=== PATIENT | female | born 1950 | race Caucasian/White ===

== ENCOUNTER → 2017-01-12 | Outpatient (CLI) | payer MEDICARE ==
--- NOTE | 2017-01-14 10:15 | REPMRS ---
Patient History The patient states she has not had a clinical breast exam in over a year. Patient is postmenopausal. No known family history of cancer. Took estrogen for 5 years. Digital Woman Screen Mammo: January 12, 2017 - Exam #: [id number] Bilateral CC and MLO view(s) were taken. Technologist: Julisa Damon, Technologist Prior study comparison: January 08, 2016, digital woman screen mammo performed at [facility]. January 03, 2015, digital woman screen mammo performed at [facility]. January 02, 2014, digital woman screen mammo performed at [facility]. FINDINGS: There are scattered fibroglandular densities. There has been no change in the appearance of the mammogram from the prior studies. There is a mild amount of scattered fibroglandular density which is fairly symmetric. There is no interval development of dominant mass, architectural distortion, or clustered microcalcification suggestive of malignancy. ASSESSMENT: BI-RADS/ACR category 1 mammogram. Negative. Recommendation Routine screening mammogram in 1 year (for women over age 40). This mammogram was interpreted with the aid of an FDA-approved computer-aided dectection system. Electronically Signed By: Kalpesh Hickey MD 01/14/17 [id number]
== END ==
LOC: M WHC 10:25
PROVIDERS: ATTEND Family Medicine
DX: Z12.31 Encounter for screening mammogram for malignant neoplasm of breast (principal)

== ENCOUNTER → 2017-04-03 | Outpatient (REF) | payer MEDICARE ==
[2017-04-03 12:50] LABS: MEAN CORPUSCULAR HEMOGLOBIN 30.8 pg (27.0-33.0); MEAN CORPUSCULAR HGB CONC 33.2 g/dl (32.0-36.5); MEAN CORPUSCULAR VOLUME 92.6 fl (80.0-96.0); RED CELL DISTRIBUTION WIDTH 12.8 % (11.5-14.5); WHITE BLOOD COUNT 7.8 K/mm3 (4.0-10.0)
[2017-04-03 13:38] LABS: ALBUMIN 3.4 GM/DL (3.2-5.2); ALBUMIN/GLOBULIN RATIO 1.1 (1.00-1.93); BILIRUBIN,TOTAL 0.4 MG/DL (0.2-1.0); CALCIUM LEVEL 9.4 MG/DL (8.8-10.2); CREATININE FOR GFR 1.13 MG/DL (0.55-1.02); GLOMERULAR FILTRATION RATE 51.3 (>45); POTASSIUM SERUM 4.7 MEQ/L (3.5-5.1); TOTAL PROTEIN 6.5 GM/DL (6.4-8.2)
== END ==
LOC: M LABDRWAD 12:10
PROVIDERS: ATTEND Family Medicine
DX: E11.9 Type 2 diabetes mellitus without complications (principal)

== ENCOUNTER → 2018-01-14 | Outpatient (CLI) | payer MEDICARE | LOC: M WHC 07:56 | DX: Z12.31 Encounter for screening mammogram for malignant neoplasm of breast (principal) | CPT/HCPCS: 77067 ==

== ENCOUNTER 2018-02-26 16:07 | Emergency (ER) | payer OTHER, MEDICARE ==
[2018-02-26] MEDS: NORCO, ANEXSIA 5/325MG TABLET (HYDROcodone/ACETAMINOPHEN) PO (18:24)
[2018-02-26] MEDS: NORCO 5/325MG TABLET (BULK FOR ED) PO (20:50)
== END 2018-02-26 20:56 | disposition home or self-care (01) ==
LOC: M ED 16:07
DX: S42.291A Other displaced fracture of upper end of right humerus, initial encounter for closed fracture (principal); M19.011 Primary osteoarthritis, right shoulder; V43.62XA Car passenger injured in collision with other type car in traffic accident, initial encounter; Y92.410 Unspecified street and highway as the place of occurrence of the external cause; E11.9 Type 2 diabetes mellitus without complications; I10 Essential (primary) hypertension; M75.81 Other shoulder lesions, right shoulder; Z79.899 Other long term (current) drug therapy; Z79.82 Long term (current) use of aspirin; Z79.84 Long term (current) use of oral hypoglycemic drugs
CPT/HCPCS: 73030

== ENCOUNTER → 2018-04-09 | Outpatient (CLI) | payer MEDICARE, OTHER ==
[2018-04-09 12:38] LABS: BASO # 0.1 10^3/uL (0.0-0.2); BASO % 0.8 % (0.0-1.0); EOS # 0.8 10^3/uL (0.0-0.50); EOS % 10.3 % (0.0-3.0); HEMATOCRIT 32.5 % (36.0-47.0); HEMOGLOBIN 10.3 g/dl (12.0-15.5); IMMATURE GRANULOCYTE % 0.5 % (0-3.0); LYMPH # 1.5 10^3/uL (1.5-4.5); LYMPH % 20.1 % (24.0-44.0); MEAN CORPUSCULAR HEMOGLOBIN 30.2 pg (27.0-33.0); MEAN CORPUSCULAR HGB CONC 31.7 g/dl (32.0-36.5); MEAN CORPUSCULAR VOLUME 95.3 fl (80.0-96.0); MONO # 0.5 10^3/uL (0.0-0.8); MONO % 6.4 % (0.0-5.0); NEUTROPHILS # 4.7 10^3/uL (1.8-7.7); NEUTROPHILS % 61.9 % (36.0-66.0); PLATELET COUNT, AUTOMATED 334 10^3/uL (150-450); RED BLOOD COUNT 3.41 10^6/uL (4.00-5.40); RED CELL DISTRIBUTION WIDTH 13.7 % (11.5-14.5); WHITE BLOOD COUNT 7.7 10^3/uL (4.0-10.0)
[2018-04-09 13:54] LABS: ALBUMIN 3.2 GM/DL (3.2-5.2); ALBUMIN/GLOBULIN RATIO 1.14 (1.00-1.93); ALKALINE PHOSPHATASE 128 U/L (45-117); ALT/SGPT 16 U/L (12-78); ANION GAP 10 MEQ/L (8-16); AST/SGOT 16 U/L (7-37); BILIRUBIN,TOTAL 0.3 MG/DL (0.2-1.0); BLOOD UREA NITROGEN 14 MG/DL (7-18); CALCIUM LEVEL 9.2 MG/DL (8.8-10.2); CARBON DIOXIDE LEVEL 25 MEQ/L (21-32); CHLORIDE LEVEL 107 MEQ/L (98-107); CHOLESTEROL LEVEL 113 MG/DL (<200); CHOLESTEROL RISK RATIO 2.627 (<5); CREATININE FOR GFR 0.78 MG/DL (0.55-1.30); GLOMERULAR FILTRATION RATE > 60.0 (>45); GLUCOSE, FASTING 155 MG/DL (70-100); HDL CHOLESTEROL 43 MG/DL (>40); HEPATITIS C VIRUS ABY INDEX 0.1 INDEX (<0.8); LDL CHOLESTEROL 48 MG/DL (<100); NON-HDL-C 70 MG/DL; POTASSIUM SERUM 4.6 MEQ/L (3.5-5.1); SODIUM LEVEL 142 MEQ/L (136-145); TRIGLYCERIDES LEVEL 108 MG/DL (<150)
[2018-04-09 14:08] LABS: MALB URINE SIEMENS 6.8 MG/L
[2018-04-09 14:34] LABS: ESTIMATED AVERAGE GLUCOSE 160 MG/DL (60-110); HEMOGLOBIN A1c 7.2 %
== END ==
LOC: M ADAMS 10:50
DX: Z13.818 Encounter for screening for other digestive system disorders (principal); E11.9 Type 2 diabetes mellitus without complications; Z79.899 Other long term (current) drug therapy
CPT/HCPCS: 80053

== ENCOUNTER → 2019-03-25 | Outpatient (REF) | payer MEDICARE ==
[~2019-03-25] MED LIST: ASPI81TA26 PO; HYDR-3715 PO; LISI10TA15 PO; METF10004 PO
[2019-03-25 12:50] LABS: BASO # 0.1 10^3/uL (0.0-0.2); BASO % 0.9 % (0.0-1.0); EOS # 0.5 10^3/uL (0.0-0.5); EOS % 7.2 % (0.0-3.0); HEMATOCRIT 37.8 % (36.0-47.0); HEMOGLOBIN 12.2 g/dl (12.0-15.5); LYMPH # 1.5 10^3/uL (1.5-5.0); MEAN CORPUSCULAR HEMOGLOBIN 30.3 pg (27.0-33.0); MEAN CORPUSCULAR HGB CONC 32.3 g/dl (32.0-36.5); MONO # 0.4 10^3/uL (0.0-0.8); MONO % 6.1 % (0.0-5.0); NEUTROPHILS # 4.1 10^3/uL (1.5-8.5); NEUTROPHILS % 62.5 % (36.0-66.0); PLATELET COUNT, AUTOMATED 242 10^3/uL (150-450); RED BLOOD COUNT 4.02 10^6/uL (4.00-5.40); WHITE BLOOD COUNT 6.5 10^3/uL (4.0-10.0)
[2019-03-25 13:04] LABS: ALBUMIN 3.6 GM/DL (3.2-5.2); ALT/SGPT 36 U/L (12-78); BILIRUBIN,TOTAL 0.4 MG/DL (0.2-1.0); BLOOD UREA NITROGEN 17 MG/DL (7-18); CALCIUM LEVEL 9.5 MG/DL (8.8-10.2); CARBON DIOXIDE LEVEL 27 MEQ/L (21-32); CHLORIDE LEVEL 104 MEQ/L (98-107); CHOLESTEROL LEVEL 124 MG/DL (<200); CREATININE FOR GFR 0.98 MG/DL (0.55-1.30); GLOMERULAR FILTRATION RATE > 60.0 (>45); GLUCOSE, FASTING 192 MG/DL (70-100); HDL CHOLESTEROL 49 MG/DL (>40); LDL CHOLESTEROL 59 MG/DL (<100); NON-HDL-C 75 MG/DL; POTASSIUM SERUM 4.6 MEQ/L (3.5-5.1); SODIUM LEVEL 139 MEQ/L (136-145); TOTAL PROTEIN 6.3 GM/DL (6.4-8.2); TRIGLYCERIDES LEVEL 82 MG/DL (<150)
[2019-03-25 13:11] LABS: HEMOGLOBIN A1c 8.7 %
[2019-03-25 13:44] LABS: MALB URINE SIEMENS 15.4 MG/L; MAU/CREAT RATIO 10.6 MCG/MG (0.0-30.0)
== END ==
LOC: M LABDRWAD 12:25
PROVIDERS: ATTEND Family Medicine
DX: E11.9 Type 2 diabetes mellitus without complications (principal)

== ENCOUNTER → 2020-02-29 | Outpatient (CLI) | payer MEDICARE ==
[~2020-02-29] MED LIST changes: +COMB0.2S; +DIALTAB PO; +GLIP2.5T6; +METO50TA7; +SIMV10TA21; +TRAM50TA2 PO; +ULTR50TA8 PO; +VYZU0.02; +ketorolac; +latanoprost
--- NOTE | 2020-03-03 11:50 | REPMRS ---
Patient History The patient states she has not had a clinical breast exam in over a year. No known family history of cancer. Took estrogen for 5 years. Digital Woman Screen Mammo: February 29, 2020 - Exam #: [id number] Bilateral CC and MLO view(s) were taken. Technologist: Floridalma Alves Technologist Prior study comparison: February 03, 2019, bilateral digital woman screen mammo performed at [facility]. January 14, 2018, bilateral digital woman screen mammo performed at [facility]. January 12, 2017, digital woman screen mammo performed at [facility]. FINDINGS: The breast tissue is almost entirely fat. The Volpara volumetric breast density category is: A. There is a 6 mm ill-defined nodular density in the inferior and medial quadrant of the left breast which merits further evaluation. There has been no other change in the appearance of the mammogram from the prior studies. There is no other interval development of dominant mass, architectural distortion, or grouped microcalcification typical of malignancy. 3-D tomosynthesis shows no additional findings. Assessment: BI-RADS/ACR category 0 mammogram, Incomplete: Need additional imaging evaluation and/or prior mammograms for comparison. Recommendation Ultrasound and special view mammogram of the left breast. This patient's Lifetime Breast Cancer RIsk is estimated at 3.6 %. This mammogram was interpreted with the aid of an FDA-approved computer-aided dectection system. Electronically Signed By: Kalpesh Hickey MD 03/03/20 [id number]
== END ==
LOC: M WHC 09:24
PROVIDERS: ATTEND Family Medicine
DX: R92.2 Inconclusive mammogram (principal); N63.25 Unspecified lump in the left breast, overlapping quadrants

== ENCOUNTER → 2020-03-15 | Outpatient (REF) | payer MEDICARE ==
[2020-03-15 14:56] LABS: INR 0.93; PROTHROMBIN TIME 12.6 SECONDS (11.8-14.0)
== END ==
LOC: M LABDRWAD 08:02
PROVIDERS: ATTEND Family Medicine
DX: Z01.812 Encounter for preprocedural laboratory examination (principal); Z79.84 Long term (current) use of oral hypoglycemic drugs

== ENCOUNTER → 2020-03-27 | Outpatient (CLI) | payer MEDICARE ==
[2020-03-27 12:29] VITALS: BP 150/80
--- NOTE | 2020-04-11 11:42 | REP ---
LEFT BREAST ULTRASOUND-GUIDED BIOPSY The procedure was performed by MONICA Bryson, under the direct supervision of Dr. Hickey. The risks and benefits of the procedure were explained to the patient and an informed consent was obtained both written and verbally. Directly prior to the start of the procedure a formal time-out was completed in the exam room. The left breast mass was localized using ultrasound guidance. The skin was prepped and draped in a sterile fashion. Approximately 12 mL of buffered Lidocaine was used as a local anesthetic. Using ultrasound guidance, a 13-gauge coaxial needle and biopsy system was inserted and advanced to the lesion, six core biopsy specimens were then obtained. A marker clip was placed at the biopsy site. The patient tolerated the procedure well and there were no immediate complications. After the appropriate amount of monitored convalescence, the patient was discharged from the department. This case has been dictated by MONICA Bryson and Dr. Hickey. JACKIE
--- NOTE | 2020-04-11 11:44 | REP ---
DIGITAL DIAGNOSTIC UNILATERAL LEFT BREAST MAMMOGRAPHY WITH CAD: 2-VIEWS HISTORY: Post ultrasound-guided needle biopsy clip placement views. COMPARISON: Mammography and sonography 03/12/2020 and 02/29/2020. FINDINGS: CC and mediolateral views of the left breast demonstrate the needle biopsy marker clip in good position at the level where prior mammography showed the ill-defined density. There is no evidence of hematoma. Some post-biopsy edema. IMPRESSION: Marker clip in good position. MTDD
== END ==
LOC: M WHCPRO 08:05
PROVIDERS: ATTEND Family Medicine
DX: D05.12 Intraductal carcinoma in situ of left breast (principal)

== ENCOUNTER → 2020-04-13 | Outpatient (REF) | payer MEDICARE ==
[~2020-04-13] MED LIST changes: -COMB0.2S; -DIALTAB PO; -GLIP2.5T6; -METO50TA7; -SIMV10TA21; -TRAM50TA2 PO; -ULTR50TA8 PO; -VYZU0.02; -ketorolac; -latanoprost
[2020-04-13 13:19] LABS: HEMATOCRIT 38.3 % (36.0-47.0); HEMOGLOBIN 12.1 g/dl (12.0-15.5); MEAN CORPUSCULAR HEMOGLOBIN 30.3 pg (27.0-33.0); MEAN CORPUSCULAR HGB CONC 31.6 g/dl (32.0-36.5); MEAN CORPUSCULAR VOLUME 95.8 fl (80.0-96.0); PLATELET COUNT, AUTOMATED 208 10^3/uL (150-450)
[2020-04-13 13:45] LABS: HEMOGLOBIN A1c 8.6 %
[2020-04-13 13:57] LABS: CREATININE, URINE 41.7 MG/DL; MALB URINE SIEMENS 10.1 MG/L; MAU/CREAT RATIO 24.2 MCG/MG (0.0-30.0)
[2020-04-13 14:00] LABS: ALBUMIN 3.4 GM/DL (3.2-5.2); ALT/SGPT 28 U/L (12-78); BILIRUBIN,TOTAL 0.4 MG/DL (0.2-1.0); BLOOD UREA NITROGEN 15 MG/DL (7-18); CALCIUM LEVEL 9.4 MG/DL (8.8-10.2); CARBON DIOXIDE LEVEL 27 MEQ/L (21-32); CHLORIDE LEVEL 105 MEQ/L (98-107); CHOLESTEROL LEVEL 128 MG/DL (<200); CHOLESTEROL RISK RATIO 2.909 (<5); CREATININE FOR GFR 0.95 MG/DL (0.55-1.30); GLOMERULAR FILTRATION RATE > 60.0 (>45); GLUCOSE, FASTING 219 MG/DL (70-100); HDL CHOLESTEROL 44 MG/DL (>40); LDL CHOLESTEROL 61 MG/DL (<100); NON-HDL-C 84 MG/DL; POTASSIUM SERUM 4.9 MEQ/L (3.5-5.1); SODIUM LEVEL 138 MEQ/L (136-145); TOTAL PROTEIN 6.6 GM/DL (6.4-8.2); TRIGLYCERIDES LEVEL 113 MG/DL (<150)
== END ==
LOC: M LABDRWAD 12:30
PROVIDERS: ATTEND Family Medicine
DX: E11.9 Type 2 diabetes mellitus without complications (principal)

== ENCOUNTER → 2020-04-27 | Outpatient (CLI) | payer MEDICARE ==
[~2020-04-27] MED LIST changes: +COMB0.2S; +DIALTAB PO; +GLIP2.5T6; +METO50TA7; +SIMV10TA21; +VYZU0.02; +ketorolac; +latanoprost
--- NOTE | 2020-04-27 17:24 | REP ---
INDICATION: MALIGNANT NEOPLASM OF UNSP SITE OF LEFT FEMALE BREAST. 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 COMPARISON: Comparison mammography February 29, 2020. TECHNIQUE: Three Joann MRI imaging was performed with a dedicated breast coil. Axial, coronal, and sagittal T1 and T2 weighted scans were obtained with and without fat saturation in the usual fashion. The study includes dynamically acquired post gadolinium-enhanced imaging with image subtraction. Maximum intensity projection and multi planar reformation imaging is included as well. This study is interpreted with the aid of Footnote, an FDA approved computer aided detection (CAD) software program, on a dedicated breast MRI workstation. The gadolinium enhancement dose is 15 mL of intravenous ProHance. FINDINGS: There is a 6 mm area of ill-defined contrast enhancement anteriorly adjacent to a magnetic field susceptibility artifact from needle biopsy marker clip placement at the recent needle biopsy site in the medial aspect of the left breast. No other suspicious finding is seen. Breast parenchyma is extensively fat replaced. There is a minimal background parenchymal enhancement pattern. No other suspicious morphologic abnormality is observed. There is no evidence of axillary or internal mammary adenopathy. Dynamically acquired sequential postcontrast images show no suspicious focus of enhancement and washout other than the medial aspect of the left breast. IMPRESSION: BI-RADS category 6 known left breast malignancy. 6 mm enhancing focus seen at the recent biopsy site. No other suspicious abnormality. <Electronically signed by Kalpesh Hickey > 04/27/20 [id number]
== END ==
LOC: M RAD 14:22
PROVIDERS: ATTEND Surgery
DX: C50.912 Malignant neoplasm of unspecified site of left female breast (principal)

== ENCOUNTER → 2020-05-15 | Outpatient (CLI) | payer MEDICARE ==
[~2020-05-15] MED LIST changes: +TRAM50TA2 PO; +ULTR50TA8 PO
--- NOTE | 2020-05-15 13:40 | REP ---
INDICATION: ENCOUNTER FOR OTHER PREPROCEDURAL EXAMINATION. COMPARISON: No comparison study. TECHNIQUE: Two views.. FINDINGS: The lungs are well inflated and free of infiltrate. The pleural angles are sharp. The heart size is normal. Pulmonary vasculature is not increased. No significant bony abnormality is seen. There are degenerative changes in the thoracic spine. 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 IMPRESSION: No active cardiopulmonary disease.. <Electronically signed by Kalpesh Hickey > 05/15/20 [id number]
== END ==
LOC: M ADAMS 11:59
PROVIDERS: ATTEND Family Medicine
DX: Z01.818 Encounter for other preprocedural examination (principal); M51.34 Other intervertebral disc degeneration, thoracic region; M19.012 Primary osteoarthritis, left shoulder

== ENCOUNTER → 2020-05-15 | Outpatient (REF) | payer MEDICARE ==
[~2020-05-15] MED LIST changes: -TRAM50TA2 PO; -ULTR50TA8 PO
[2020-05-15 12:47] LABS: BASO # 0.1 10^3/uL (0.0-0.2); BASO % 0.8 % (0.0-1.0); EOS # 0.4 10^3/uL (0.0-0.5); EOS % 4.4 % (0.0-3.0); HEMATOCRIT 38.9 % (36.0-47.0); LYMPH # 1.9 10^3/uL (1.5-5.0); LYMPH % 23.7 % (24.0-44.0); MEAN CORPUSCULAR HEMOGLOBIN 29.3 pg (27.0-33.0); MEAN CORPUSCULAR HGB CONC 30.8 g/dl (32.0-36.5); MEAN CORPUSCULAR VOLUME 95.1 fl (80.0-96.0); MONO # 0.5 10^3/uL (0.0-0.8); MONO % 6.7 % (0.0-5.0); NEUTROPHILS # 5.1 10^3/uL (1.5-8.5); PLATELET COUNT, AUTOMATED 223 10^3/uL (150-450); RED BLOOD COUNT 4.09 10^6/uL (4.00-5.40); WHITE BLOOD COUNT 7.9 10^3/uL (4.0-10.0)
[2020-05-15 13:21] LABS: ALBUMIN 3.5 GM/DL (3.2-5.2); BILIRUBIN,TOTAL 0.3 MG/DL (0.2-1.0); CALCIUM LEVEL 9.7 MG/DL (8.8-10.2); CREATININE FOR GFR 1.14 MG/DL (0.55-1.30); GLOMERULAR FILTRATION RATE 50.3 (>45); POTASSIUM SERUM 5.2 MEQ/L (3.5-5.1); TOTAL PROTEIN 6.9 GM/DL (6.4-8.2)
== END ==
LOC: M LABDRWAD 12:30
PROVIDERS: ATTEND Family Medicine
DX: Z01.818 Encounter for other preprocedural examination (principal)

== ENCOUNTER → 2020-05-17 | Outpatient (CLI) | payer MEDICARE ==
[~2020-05-17] MED LIST changes: +TRAM50TA2 PO; +ULTR50TA8 PO
== END ==
LOC: M LABSMTC 12:18
PROVIDERS: ATTEND Anesthesiology
DX: Z01.812 Encounter for preprocedural laboratory examination (principal); Z20.828 Contact with and (suspected) exposure to other viral communicable diseases
CPT/HCPCS: C9803; U0003

== ENCOUNTER 2020-05-22 09:25 | Day surgery (SDC) | payer MEDICARE ==
[~2020-05-22] VITALS: Ht 154.9 cm; Wt 86.2 kg
[~2020-05-22 09:25] MED LIST changes: +HEPARIN SOD (PORCINE) 5000UNITS/ML 1ML VIAL/SYRINGE SQ ONE; +LR 1,000 ML IV ONE; -TRAM50TA2 PO; -ULTR50TA8 PO; +ceFAZolin SOD 2 GM in IV 1 EA IV ONE
[2020-05-22] MEDS ORDERED: MIDAZOLAM INJ 2MG/2ML VIAL (J2250 PER 1MG) As Ordered ONE (09:48)
[2020-05-22] MEDS ORDERED: fentaNYL 100 MCG/2 ML INJECTION (J3010) As Ordered ONE (09:49)
[2020-05-22] MEDS ORDERED: LIDOCAINE 2% 100MG/5ML SDV (FOR ANES.) As Ordered ONE (09:50)
[2020-05-22] MEDS ORDERED: propofoL 200 MG/20 ML VIAL As Ordered ONE (10:48)
[2020-05-22] MEDS ORDERED: dexameTHASONE 4 MG/ML 1ML VIAL (J1100 PER 1MG) As Ordered ONE (10:48)
[2020-05-22] MEDS ORDERED: LIDOCAINE 1% SDV 30ML VIAL As Ordered ONE (10:51)
[2020-05-22] MEDS ORDERED: BUPIVACAINE HCL 0.25% 30ML VIAL As Ordered ONE (10:51)
[2020-05-22] MEDS ORDERED: HumaLOG INSULIN (NovoLOG) PER UNIT SC ONE (11:30)
[2020-05-22] MEDS ORDERED: PHENYLephrine HCL 500 MCG/5 ML (100MCG/ML) SYRINGE (J2370) As Ordered ONE ×2 (11:55→12:32)
[2020-05-22] MEDS ORDERED: ePHEDrine SULFATE 25 MG/5 ML(5MG/ML) SYRINGE As Ordered ONE (11:55)
[2020-05-22] MEDS ORDERED: ACETAMINOPHEN 1000MG 100ML IV BTL (OFIRMEV) (J0131 PER 10MG) As Ordered ONE (12:23)
[2020-05-22] MEDS ORDERED: ONDANSETRON 4MG/2ML VIAL As Ordered ONE (13:50)
[2020-05-22] MEDS ORDERED: ULTR50TA8 PO (14:10)
[2020-05-22] MEDS ORDERED: fentaNYL 100 MCG/2 ML INJECTION (J3010) IV PRN (14:30)
[2020-05-22] MEDS ORDERED: ONDANSETRON 4MG/2ML VIAL IV PRN (14:30)
[2020-05-22] MEDS ORDERED: HYDROMORPHONE HCL 0.5 MG/ 0.5 ML SYRINGE (J1170 PER 1) IV PRN (14:30)
[2020-05-22] MEDS ORDERED: METOCLOPRAMIDE INJ 10MG/2ML VIAL (J2765 PER 1) IV PRN (14:30)
[2020-05-22] MEDS ORDERED: PERCOCET 5MG/325MG TAB PO PRN (14:30)
[2020-05-22] MEDS ORDERED: LR 1,000 ML IV SCH (14:30)
--- NOTE | 2020-05-22 15:12 | REP ---
INDICATION: LT BREAST WIRE LOCAL. COMPARISON: March 27, 2020.. TECHNIQUE: Sonographic guidance. FINDINGS: Real-time sonographic guidance is provided to Dr. Morris performed a needle wire localization procedure of a previously placed HydroMARK clip in the left breast. IMPRESSION: Sonographic guidance. <Electronically signed by Kalpesh Hickey > 05/22/20 [id number]
[2020-05-22 15:30] VITALS: BP 130/57
[2020-05-22] MEDS ORDERED: TRAM50TA2 PO (18:09)
--- NOTE | 2020-05-22 20:52 | ROOPDOC ---
[facility] Report Of Operation Report of Operation DATE OF PROCEDURE: 05/22/20 PREPROCEDURE DIAGNOSES: left papillary carcinoma POSTPROCEDURE DIAGNOSES: same PROCEDURE: Left lumpectomy with intraop wire placement SURGEON: Wes Hernandez ANESTHESIA: general ESTIMATED BLOOD LOSS: Approximately 25 mL. COMPLICATIONS: none REMARKS: wire and clip seen in the specimen DESCRIPTION OF PROCEDURE: INDICATIONS: Ms. Mac is a 69-year-old woman who was found to have a suspicious left breast lesion measuring 6 mm on screening mammogram. This was evaluated with US and sonographic correlate was found. US guided biopsy of the left breast mass came back as papillary carcinoma, ER+, UT +, HER-2 unknown , grade1. Base on the biopsy results it is unclear if this lesion is in-situ/ encapsulated, or invasive. We have discussed that with invasive carcinoma we pursue evaluation of sentinel lymph nodes in patients younger that 70 and in in-situ cancers, we dont do sentinel lymph node evaluation. Due to the fact that at this time it is unknown if the cancer is invasive, we will defer evaluation of sentinel lymph nodes since it may not be necessary. We have discussed surgical options of breast cancer treatment. Patient opted for breast conservative surgery. She was medically cleared for surgery by her primary care doctor. Risks and possible complications of surgical procedure including bleeding, infection and injury to surrounding structures were explained to the patient and she wished to proceed. Consent was signed. My initials were placed on the operative site. Subcutaneous injection of 5000 units of heparin was done in Preop. DETAILS: Patient was taken to the operating room and placed on the operating room table. A sign in was called stating patients name, date of and the procedure to be done. Preoperative antibiotics were infused. Smooth induction of general anesthesia was done. Patients hands were extended on arm rests. Care was taken not to over extend the arms. Pillow was placed under the knees and a foam was placed under the heels. Sequential compression devices were placed and assured to function correctly. Procedure was started with left breast intraop wire localization. Appropriate time out was done and patients name, date of , and the procedure to be done were confirmed. Left breast was cleaned by me. Intraoperative ultrasound was used to confirm location of the Hydromark clip which was very hard to see for some reason. Location of the clip was marked on the skin as well. 21 G KoRentifys Breast Lesion Localization Needle was used to place 25 cm wire through the lesion. The wire was placed through the clip and passed a centimeter deep. The images were captured confirming adequate placement of the localizing wire. Delineator assisted with the wire placement. Next, patients left breast and axilla were prepped and draped in the usual fashion. Care was taken not to displace the wire. Appropriate time out was done again prior second part of the procedure. Patients name, date of , and the procedure to be done were confirmed. Local anesthetic using 1% lidocaine and 0.25 % Marcaine 50/50 mix was injected at the site of planned periareolar incision. The incision was made with the scalpel. Subcutaneous skin flaps were raised and the guide wire was carefully pulled into the wound. Dissection was carries along the wire until the pre viously marked on the skin area of target lesion location was encountered. At this point, wider excision of the tissue surrounding the wire was done. The Hydromark clip was identified in the tissue with intraoperative hockey stick ultrasound probe although visualization of the clip was very difficult in this case. The end of the wire was identified with palpation. The lumpectomy specimen was carefully removed from the breast keeping its proper orientation and moved to the back table where margins were marked with the surgical inking kit following the standard colors recommendations. Specimen was then placed on the grid and placed in [employer] Specimen Imaging System. The image revealed the wire and the Hydromark in the specimen. The specimen was labeled with patients name and left lumpectomy and sent to pathology. Next, five additional margins were taken: deep, inferior, superior, medial, and lateral. Anterior margin was not taken as there was adequate anterior margin seen on radiography. All new margins, defined as margin farthest away from lumpectomy cavity, were marked with black ink. Each margin was sent as a separate specimen with appropriate labeling. Wound was thoroughly irrigated. Adequate hemostasis was assured. Additional local anesthetic was injected into surrounding tissues. Clips were placed to jermaine the cavity. space was approximated with 2-0 Vicryl. The dermis was closed with 3-0 Vicryl and skin was closed with 4-0 Monocryl. Surgical glue was placed over the incision. Patient emerged from the anesthesia without any problems. Fluffs were placed over the operative site and patients chest was wrapped snuggly in the TRAVIS wrap. Sponge and instrument counts were done and were correct. Patient tolerated procedure well and was taken to recovery unit in stable condition. WES HERNANDEZ. May 22, 2020 20:52
--- NOTE | 2020-05-23 12:35 | REP ---
INDICATION: KUBTEC. Specimen radiography left breast. Post needle localization directed excision. COMPARISON: Comparison mammography March 27, 2020.. TECHNIQUE: Single specimen radiograph. A photograph is included. FINDINGS: Specimen radiography demonstrates a needle wire localization device in place in the specimen. Adjacent to the wire there is a marker clip from previous biopsy and there are some linearly aligned calcifications. IMPRESSION: Needle biopsy marker clip is seen adjacent to the localizer wire within the specimen. <Electronically signed by Kalpesh Hickey > 05/23/20 [id number]
== END 2020-05-22 15:30 | disposition home or self-care (01) ==
LOC: M SDC 09:25
PROVIDERS: ATTEND Surgery
DX: D05.12 Intraductal carcinoma in situ of left breast (principal); Z17.0 Estrogen receptor positive status [ER+]; I10 Essential (primary) hypertension; E11.9 Type 2 diabetes mellitus without complications; E78.49 Other hyperlipidemia; Z79.84 Long term (current) use of oral hypoglycemic drugs; Z79.899 Other long term (current) drug therapy
CPT/HCPCS: 19125; 36415; 76942; 86850; 86900; 86901; 88305; 88307; J0131; J0690; J1100; J1644; J2250; J2370; J2405; J3010

== ENCOUNTER → 2020-05-28 | Outpatient (CLI) | payer MEDICARE ==
[~2020-05-28] MED LIST changes: -HEPARIN SOD (PORCINE) 5000UNITS/ML 1ML VIAL/SYRINGE SQ ONE; -LR 1,000 ML IV ONE; +TRAM50TA2 PO; +ULTR50TA8 PO; -ceFAZolin SOD 2 GM in IV 1 EA IV ONE
== END ==
LOC: M PLALAB 14:14
PROVIDERS: ATTEND Surgery
DX: Z13.79 Encounter for other screening for genetic and chromosomal anomalies (principal)

== ENCOUNTER → 2020-06-12 | Outpatient (CLI) | payer MEDICARE ==
[~2020-06-12] MED LIST changes: +ANAS1TAB2 PO; +CALC1TAB63 PO; +LISI-538 PO
--- NOTE | 2020-06-12 10:33 | RADONC.CN ---
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 She is s/p lumpectomy on 05/22/20 with widely negative margins and seen today for consideration of adjuvant RT. Diagnosis/Treatment History Oncologic History Has been compliant with screening mammograms annually since age 50. 02/29/20 mammogram with nodule in the inferior medial left breast, subsequent biopsy 04/02/20 showing encapsulated papillary carcinoma without invasion ER/KY+ HER2-. 04/27/20 MRI without regional involvement. 05/22/20 Lumpectomy revealing pTisNX 0.2 cm focus of DCIS, 0.1 cm focus of encapsulated papillary carcinoma, margins clear. Genetic testing pending. Interval History Sees medical oncology tomorrow for consideration of AI. Feels well. Did not feel a lump on self exam, which she does monthly. Post-operatively no pain or edema. Past Medical History: Glaucoma DMII HTN HPL Breast history: Menses @ 16 1st @ 17 OCP use several years No HRT Menopause @ 50 Past Surgical History: As above Family History: No family history of breast, ovarian, pancreatic, or prostate cancers Daughter has gastric cancer Brother lung cancer Social History: Never smoker Non-drinker Allergies / Meds Allergies: Coded Allergies: No Known Allergies (Unverified , 04/16/09) Home Meds Active Scripts Tramadol HCl (Tramadol HCl) 50 Mg Tablet, 50 MG PO Q6HP PRN for pain MDD 4 Tablet(s) for 3 Days, #10 TAB Prov:WES HERNANDEZ DO 05/22/20 Reported Medications B Complex 11/Folic/C/Biot/Zinc (Dialyvite with Zinc Tablet) 1 Each Tablet, 1 TAB PO, TAB 05/17/20 Brimonidine Tartrate/Timolol (Combigan 0.2%-0.5% Eye Drops) 5 Ml Drops 05/17/20 Latanoprostene Bunod (Vyzulta) 0.024% 5ML Drops 05/17/20 [latanoprost] No Conflict Check 05/17/20 [ketorolac] No Conflict Check 05/17/20 Simvastatin (Simvastatin) 10 Mg Tablet, DAILY 05/17/20 Metoprolol Tartrate (Metoprolol Tartrate) 50 Mg Tablet, DAILY 05/17/20 Glipizide (Glipizide ER) 2.5 Mg Tab.er.24, DAILY 05/17/20 Lisinopril/Hydrochlorothiazide (Lisinopril-Hctz 10-12.5 mg Tab) 1 Tab Tab, 1 TAB PO DAILY for 30 Days, #30 TAB 02/26/18 Metformin HCl (Metformin HCl) 1,000 Mg Tab, 1 TAB PO BID for 30 Days, #60 TAB 02/26/18 Review of Systems Constitutional: Denies: Chills, Fever, Night Sweats Eyes: Denies: Pain, Vision change HEENT: Denies: Head Aches, Dysphagia, Sore Throat Skin: Denies: Rash, Lesions, Bruising Pulmonary: Denies: Dyspnea, Cough Gastrointestinal: Denies: Nausea, Vomiting, Abdominal Pain, Diarrhea Genitourinary: Denies: Dysuria, Frequency, Incontinence Hematologic: Denies: Bruising, Petecchia, Enlarged Lymph Nodes Musculoskeletal: Denies: Neck pain, Back pain Neurological: Denies: Weakness, Numbness, Incoordination Psych: Reports: Mood Normal; Denies: Memory Issues, Thoughts of Self Harm Vital Signs Ht 61" Wt 192 lb BMI 36 T 96.8 P 85 RR 16 BP 149/54 O2 97% General Exam: Positive: Alert, Cooperative, No Acute Distress Eye Exam: Positive: PERRLA, EOMI, Other Eye Symptoms (Watery eyes BL) ENT EXAM: Positive: Mucous membr. moist/pink, Pharynx Normal Neck Exam: Negative: Thyromegaly, Lymphadenopathy Chest Exam: Positive: Normal air movement; Negative: Rales, Rhonchi, Wheezing Heart Exam: Positive: Rate Normal, Regular Rhythm Breast Exam: Positive: Symmetric Bilaterally (ptotic), Skin Changes (Periareolar incision on left healing well, no drainage); Negative: Lumps or Masses (Palpable seroma left central breast, no axillary lesions palpated), Nipple Retraction, Nipple Discharge Abdomen Exam: Positive: Soft; Negative: Tenderness, Mass Extremity Exam: Negative: Edema, Tenderness Skin Exam: Positive: Nl turgor and temperature; Negative: Rash Neuro Exam: Positive: Normal Gait, Normal Speech, Cranial Nerves 3-12 NL Psych Exam: Positive: Mental status NL, Mood NL, Memory Intact Diagnostic and Laboratory Diagnostic Review Radiologic images, relevant labs and pathology reports were personally reviewed and discussed with Ms. Mac. Assessment and Plan Impression Ms. 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 She is s/p lumpectomy on 05/22/20 with widely negative margins and seen today for consideration of adjuvant RT. Stage Stage 0 pTisNXM0 ER/KY+ HER2- Grade 1 left breast DCIS/encapsulated papillary carcinoma Performance Status ECOG 0 Plan We had an extensive discussion with Ms. Mac regarding the diagnosis at hand and available therapeutic options. She is doing well post-operatively with no complaints today. She had minute foci of DCIS, receptor positive, which were widely excised. Given this and her age (69), she is a good candidate for omission of RT, as she states she will take and AI if offered at her medical oncology appointment tomorrow. I explained that her risk for recurrence is diminishingly low with or without RT, hence I would prefer to spare her any toxicity from treatment. She was happy to hear this. After discussing the risks, benefits and alternatives to radiation therapy, Ms. Mac was amenable to pursuing an AI and omitting RT. We instructed the patient that if there were any questions,concerns or changes in clinical status in the interim to contact us. Recommendations Omit adjuvant RT Medical oncology appointment tomorrow to consider AI Patient has mammographic and surgical follow up plans No need for additional follow up with me at this time JEANNE STAPLETON MD Jun 12, 2020 10:33
== END ==
LOC: M ONCR 09:22
PROVIDERS: ATTEND General Practice
DX: Z85.3 Personal history of malignant neoplasm of breast (principal)

== ENCOUNTER → 2020-07-02 | Outpatient (CLI) | payer MEDICARE ==
--- NOTE | 2020-07-02 11:21 | DEXAMM ---
INDICATION: BREAST CA ON ANSTAZOLE. COMPARISON: 01/08/2016. 01/20/2005. TECHNIQUE: Bone density was measured using dual-energy x-ray absorptiometry (DEXA). FINDINGS: AP SPINE L1-L4 BMD 1.551 g/cm2 Young Adult T-Score 3.1 Age Matched Z-Score 4.8. LT FEMUR, TOTAL BMD 1.183 g/cm2 Young Adult T-Score 1.4 Age Matched Z-Score 2.8. LT NECK BMD 1.130 g/cm2 Young Adult T-Score 0.7 Age Matched Z-Score 2.3. RT FEMUR, TOTAL BMD 1.141 g/cm2 Young Adult T-Score 1.1 Age Matched Z-Score 2.5. RT NECK BMD 1.104 g/cm2 Young Adult T-Score 0.5 Age Matched Z-Score 2.2. IMPRESSION: There is normal bone density of the spine. There is normal bone density of the left hip. There is normal bone density of the right hip. The density of the spine has increased 15.6% since the initial exam on 01/20/2005. The density of the spine decreased 1.6% since most recent exam on 01/08/2016. The density of the left hip has decreased 11.2% since initial exam on 01/20/2005. The density of the left hip has decreased 2.6% since most recent exam on 01/08/2016. The density of the right hip has decreased 12.9% since the initial exam on 01/20/2005. The density of the right hip has decreased 0.7% since the most recent exam on 01/08/2016. FOLLOW-UP: Recommendation for the next bone density exam: 2 years. <Electronically signed by Kameron Mane > 07/02/20 [id number]
== END ==
LOC: M WHC 10:39
PROVIDERS: ATTEND Internal Medicine Hematology & Oncology
DX: C50.919 Malignant neoplasm of unspecified site of unspecified female breast (principal); Z78.0 Asymptomatic menopausal state

== ENCOUNTER → 2021-03-01 | Outpatient (CLI) | payer MEDICARE ==
[~2021-03-01] MED LIST changes: -LISI-538 PO; +LISI20TA33 PO; +TRUL0.5I
--- NOTE | 2021-03-01 14:59 | REP ---
INDICATION: HX L BREAST CANCER 2019. COMPARISON: Multiple TECHNIQUE: Diagnostic digital bilateral mammography was carried out in the CC and MLO projections in both 2D and 3D modalities and compared to the prior exams. Patient is status post left breast lumpectomy secondary to carcinoma. By history, the patient has no complaints of a palpable breast abnormality or other significant breast complaints. FINDINGS: The breasts are unchanged in size and shape. Multiple surgical clips are seen in the left breast centrally secondary to previous lumpectomy. Scattered stable benign-appearing calcifications are seen bilaterally. There are no significant right breast changes. In the retroareolar region of the left breast there is an area of mixed density and asymmetry representing a change from the prior exams. Diagnostic digital magnified spot compression views of this region were obtained along with left breast ultrasonography. The spot compression views show multiple round areas of decreased parenchymal density with circumscribed increased density. Diagnostic ultrasonography was performed showing 2 anechoic areas both of which exhibit posterior wall enhancement and increased through transmission 1 measuring 5.8 x 3.8 x 3.5 mm and the other 6.7 x 3.4 x 6.7 mm. Shear wave elastography was performed on these showing very low kPa values. The Volpara volumetric breast density pattern is b. IMPRESSION: BIRADS/ACR category 2 benign findings. There is an area of fat necrosis with simple cysts in the retroareolar region of the left breast as described above. There is no evidence of malignant alteration. This mammogram was interpreted with the aid of an FDA-approved computer-aided detection system. The patient states she had a clinical breast exam in January 2021. The patient letter being requested is M1. RECOMMENDATION: Repeat screening mammography recommended 1 year (for women over 40). <Electronically signed by Shan Alarcon > 03/01/21 [id number]
== END ==
LOC: M WHC 09:40
PROVIDERS: ATTEND Surgery
DX: C50.912 Malignant neoplasm of unspecified site of left female breast (principal); R92.1 Mammographic calcification found on diagnostic imaging of breast; N63.25 Unspecified lump in the left breast, overlapping quadrants
CPT/HCPCS: 76642; 77066; G0279

== ENCOUNTER → 2021-11-26 | Outpatient (CLI) | payer MEDICARE ==
[~2021-11-26] MED LIST changes: -LISI10TA15 PO; +LISI10TA24 PO
[2021-11-26 12:48] LABS: HEMATOCRIT 38.5 % (36.0-47.0); HEMOGLOBIN 12.5 g/dl (12.0-15.5); MEAN CORPUSCULAR HGB CONC 32.5 g/dl (32.0-36.5); MEAN CORPUSCULAR VOLUME 92.5 fl (80.0-96.0); PLATELET COUNT, AUTOMATED 229 10^3/uL (150-450); RED BLOOD COUNT 4.16 10^6/uL (4.00-5.40); WHITE BLOOD COUNT 7.5 10^3/uL (4.0-10.0)
[2021-11-26 13:00] LABS: ALBUMIN 3.7 GM/DL (3.2-5.2); BILIRUBIN,TOTAL 0.4 MG/DL (0.2-1.0); CALCIUM LEVEL 9.6 MG/DL (8.8-10.2); CHOLESTEROL RISK RATIO 2.178 (<5); CREATININE FOR GFR 1.04 MG/DL (0.55-1.30); GLOMERULAR FILTRATION RATE 55.6 (>39); POTASSIUM SERUM 4.6 MEQ/L (3.5-5.1); TOTAL PROTEIN 6.8 GM/DL (6.4-8.2)
[2021-11-26 13:13] LABS: HEMOGLOBIN A1c 6.3 %
[2021-11-26 13:27] LABS: MALB URINE SIEMENS 10.3 MG/L; MAU/CREAT RATIO 7.3 MCG/MG (0.0-30.0)
== END ==
LOC: M ADAMS 08:27
PROVIDERS: ATTEND Family Medicine
DX: E11.9 Type 2 diabetes mellitus without complications (principal)

== ENCOUNTER → 2022-03-03 | Outpatient (CLI) | payer MEDICARE ==
[~2022-03-03] MED LIST changes: +BRIM1OPD; +OSTE1TAB2 PO
== END ==
LOC: M WHC 09:06
PROVIDERS: ATTEND Nurse Practitioner Women's Health
DX: Z08 Encounter for follow-up examination after completed treatment for malignant neoplasm (principal); Z85.3 Personal history of malignant neoplasm of breast; N64.1 Fat necrosis of breast
CPT/HCPCS: 77066; G0279

== ENCOUNTER → 2022-09-03 | Outpatient (CLI) | payer MEDICARE ==
[~2022-09-03] MED LIST changes: +LATANOPROST; +TIMO0.5S29
== END ==
LOC: M WHC 08:50
PROVIDERS: ATTEND Nurse Practitioner
DX: C50.919 Malignant neoplasm of unspecified site of unspecified female breast (principal)

== ENCOUNTER → 2022-11-14 | Outpatient (REF) | payer MEDICARE ==
[~2022-11-14] MED LIST changes: +TIMO0.5S20; -TIMO0.5S29
[2022-11-14 13:44] LABS: BASO # 0.1 10^3/uL (0.0-0.2); BASO % 0.7 % (0.0-1.0); EOS # 0.3 10^3/uL (0.0-0.5); EOS % 4.1 % (0.0-3.0); HEMATOCRIT 38.7 % (36.0-47.0); HEMOGLOBIN 12.2 g/dl (12.0-15.5); LYMPH % 29.4 % (24.0-44.0); MEAN CORPUSCULAR HEMOGLOBIN 30.3 pg (27.0-33.0); MEAN CORPUSCULAR HGB CONC 31.5 g/dl (32.0-36.5); MONO # 0.5 10^3/uL (0.0-0.8); MONO % 6.8 % (2.0-8.0); NEUTROPHILS % 58.6 % (36.0-66.0); PLATELET COUNT, AUTOMATED 238 10^3/uL (150-450); RED BLOOD COUNT 4.03 10^6/uL (4.00-5.40); WHITE BLOOD COUNT 6.8 10^3/uL (4.0-10.0)
[2022-11-14 13:47] LABS: HEMOGLOBIN A1c 6.3 % (4.0-6.0)
[2022-11-14 14:13] LABS: ALBUMIN 3.5 G/DL (3.2-5.2); ALKALINE PHOSPHATASE 60 U/L (46-116); ALT/SGPT 18 U/L (7.0-40); AST/SGOT < 8 U/L (<34); BILIRUBIN,TOTAL 0.4 MG/DL (0.3-1.2); BLOOD UREA NITROGEN 21 MG/DL (9-23); CALCIUM LEVEL 9.4 MG/DL (8.3-10.6); CARBON DIOXIDE LEVEL 28 MMOL/L (20-31); CHLORIDE LEVEL 105 MMOL/L (98-107); CHOLESTEROL LEVEL 116 MG/DL (<200); CREATININE FOR GFR 1.07 MG/DL (0.55-1.30); GLOMERULAR FILTRATION RATE 53.7 (>39); GLUCOSE, FASTING 112 MG/DL (74-106); HDL CHOLESTEROL 52.7 MG/DL (>40); LDL CHOLESTEROL 47.9 MG/DL (<100); NON-HDL-C 63.3 MG/DL; POTASSIUM SERUM 4.8 MMOL/L (3.5-5.1); SODIUM LEVEL 141 MMOL/L (136-145); TOTAL PROTEIN 6.3 G/DL (5.7-8.2); TRIGLYCERIDES LEVEL 77 MG/DL (<150)
== END ==
LOC: M LABDRWAD 12:43
PROVIDERS: ATTEND Family Medicine
DX: E11.9 Type 2 diabetes mellitus without complications (principal)

== ENCOUNTER → 2023-03-02 | Outpatient (CLI) | payer MEDICARE ==
[2023-03-02 13:32] LABS: URIC ACID 7.4 MG/DL (3.1-7.8)
[2023-03-02 13:34] LABS: C REACTIVE PROTEIN QUANTITATIV < 0.40 MG/DL (<1.0)
[2023-03-02 13:35] LABS: RHEUMATOID FACTOR QUANT 3.9 IU/ML (<14)
[2023-03-03 23:09] LABS: CYCLIC CITRULLINATED PEPTIDE < 1 units (0-19)
== END ==
LOC: M ADAMS 08:35
PROVIDERS: ATTEND Family Medicine
DX: M79.646 Pain in unspecified finger(s) (principal)

== ENCOUNTER → 2023-03-04 | Outpatient (CLI) | payer MEDICARE | LOC: M WHC 10:05 | PROVIDERS: ATTEND Nurse Practitioner Women's Health | DX: C50.912 Malignant neoplasm of unspecified site of left female breast (principal) | CPT/HCPCS: 77066; G0279 ==

== ENCOUNTER → 2023-11-05 | Outpatient (REF) | payer MEDICARE ==
[2023-11-05 13:22] LABS: BASO # 0.1 10^3/uL (0.0-0.2); BASO % 1.1 % (0.0-1.0); EOS # 0.3 10^3/uL (0.0-0.5); EOS % 3.6 % (0.0-3.0); HEMATOCRIT 38.8 % (36.0-47.0); HEMOGLOBIN 12.2 g/dl (12.0-15.5); LYMPH # 2.2 10^3/uL (1.5-5.0); LYMPH % 30.9 % (24.0-44.0); MEAN CORPUSCULAR HEMOGLOBIN 30.6 pg (27.0-33.0); MEAN CORPUSCULAR HGB CONC 31.4 g/dl (32.0-36.5); MEAN CORPUSCULAR VOLUME 97.2 fl (80.0-96.0); MONO # 0.5 10^3/uL (0.0-0.8); MONO % 7.3 % (2.0-8.0); NEUTROPHILS # 4.1 10^3/uL (1.5-8.5); PLATELET COUNT, AUTOMATED 269 10^3/uL (150-450); RED BLOOD COUNT 3.99 10^6/uL (4.00-5.40); WHITE BLOOD COUNT 7.2 10^3/uL (4.0-10.0)
[2023-11-05 13:49] LABS: HEMOGLOBIN A1c 6.8 % (4.0-6.0)
[2023-11-05 14:13] LABS: ALBUMIN 3.6 G/DL (3.2-5.2); ALKALINE PHOSPHATASE 58 U/L (46-116); ALT/SGPT 21 U/L (7.0-40); AST/SGOT 19 U/L (<34); BILIRUBIN,TOTAL 0.4 MG/DL (0.3-1.2); BLOOD UREA NITROGEN 20 MG/DL (9-23); CALCIUM LEVEL 10.1 MG/DL (8.3-10.6); CARBON DIOXIDE LEVEL 26 MMOL/L (20-31); CHLORIDE LEVEL 104 MMOL/L (98-107); CHOLESTEROL LEVEL 117 MG/DL (<200); CHOLESTEROL RISK RATIO 2.31 (<5); CREATININE FOR GFR 0.92 MG/DL (0.55-1.30); GLOMERULAR FILTRATION RATE > 60.0 (>39); GLUCOSE, FASTING 148 MG/DL (74-106); HDL CHOLESTEROL 50.5 MG/DL (>40); LDL CHOLESTEROL 44.1 MG/DL (<100); NON-HDL-C 66.5 MG/DL; POTASSIUM SERUM 4.7 MMOL/L (3.5-5.1); SODIUM LEVEL 139 MMOL/L (136-145); TOTAL PROTEIN 6.5 G/DL (5.7-8.2); TRIGLYCERIDES LEVEL 112 MG/DL (<150)
== END ==
LOC: M LABDRWAD 12:28
PROVIDERS: ATTEND Family Medicine
DX: E11.69 Type 2 diabetes mellitus with other specified complication (principal)

== ENCOUNTER → 2024-03-10 | Outpatient (CLI) | payer MEDICARE ==
[~2024-03-10] MED LIST changes: +CETI5SOL3 PO; +FLUTISP; +METH4PACK
== END ==
LOC: M WHC 09:16
PROVIDERS: ATTEND Nurse Practitioner Women's Health
DX: Z12.39 Encounter for other screening for malignant neoplasm of breast (principal); Z85.3 Personal history of malignant neoplasm of breast
CPT/HCPCS: 77066; G0279

== ENCOUNTER → 2024-10-03 | Outpatient (REF) | payer MEDICARE ==
[~2024-10-03] MED LIST changes: +DORZ2SOL5; +GLIP2.5T46; -GLIP2.5T6
[2024-10-03 14:01] LABS: BASO # 0.1 10^3/uL (0.0-0.2); BASO % 0.7 % (0.0-1.0); EOS # 0.4 10^3/uL (0.0-0.5); EOS % 4.3 % (0.0-3.0); HEMATOCRIT 38.3 % (36.0-47.0); HEMOGLOBIN 12.1 g/dl (12.0-15.5); LYMPH # 2.2 10^3/uL (1.5-5.0); LYMPH % 25.9 % (24.0-44.0); MEAN CORPUSCULAR HEMOGLOBIN 30.2 pg (27.0-33.0); MEAN CORPUSCULAR HGB CONC 31.6 g/dl (32.0-36.5); MEAN CORPUSCULAR VOLUME 95.5 fl (80.0-96.0); MONO # 0.6 10^3/uL (0.0-0.8); MONO % 7.5 % (2.0-8.0); NEUTROPHILS # 5.2 10^3/uL (1.5-8.5); NEUTROPHILS % 61.2 % (36.0-66.0); PLATELET COUNT, AUTOMATED 233 10^3/uL (150-450); RED BLOOD COUNT 4.01 10^6/uL (4.00-5.40); WHITE BLOOD COUNT 8.4 10^3/uL (4.0-10.0)
[2024-10-03 14:09] LABS: ALBUMIN 3.5 G/DL (3.2-5.2); ALKALINE PHOSPHATASE 61 U/L (35-104); ALT/SGPT 17 U/L (7.0-40); AST/SGOT 16 U/L (<34); BILIRUBIN,TOTAL 0.6 MG/DL (0.3-1.2); BLOOD UREA NITROGEN 16 MG/DL (9-23); CALCIUM LEVEL 9.7 MG/DL (8.3-10.6); CARBON DIOXIDE LEVEL 26 MMOL/L (20-31); CHLORIDE LEVEL 106 MMOL/L (98-107); CREATININE FOR GFR 0.83 MG/DL (0.55-1.30); GLOMERULAR FILTRATION RATE > 60.0 (>39); GLUCOSE, FASTING 168 MG/DL (74-106); SODIUM LEVEL 141 MMOL/L (136-145); TOTAL PROTEIN 6.7 G/DL (5.7-8.2)
== END ==
LOC: M LABDRWAD 12:47
PROVIDERS: ATTEND Internal Medicine Hematology & Oncology
DX: D05.12 Intraductal carcinoma in situ of left breast (principal)

== ENCOUNTER → 2024-10-31 | Outpatient (REF) | payer MEDICARE ==
[~2024-10-31] MED LIST changes: +PRESCAP PO; +XALA0.007
[2024-10-31 14:14] LABS: BASO # 0.1 10^3/uL (0.0-0.2); BASO % 0.8 % (0.0-1.0); EOS # 0.3 10^3/uL (0.0-0.5); EOS % 4.6 % (0.0-3.0); HEMATOCRIT 37.6 % (36.0-47.0); HEMOGLOBIN 11.9 g/dl (12.0-15.5); LYMPH # 2.1 10^3/uL (1.5-5.0); MEAN CORPUSCULAR HEMOGLOBIN 29.9 pg (27.0-33.0); MEAN CORPUSCULAR HGB CONC 31.6 g/dl (32.0-36.5); MEAN CORPUSCULAR VOLUME 94.5 fl (80.0-96.0); MONO # 0.5 10^3/uL (0.0-0.8); MONO % 6.6 % (2.0-8.0); NEUTROPHILS # 4.2 10^3/uL (1.5-8.5); NEUTROPHILS % 58.7 % (36.0-66.0); PLATELET COUNT, AUTOMATED 251 10^3/uL (150-450); RED BLOOD COUNT 3.98 10^6/uL (4.00-5.40); WHITE BLOOD COUNT 7.2 10^3/uL (4.0-10.0)
[2024-10-31 14:19] LABS: ALBUMIN 3.6 G/DL (3.2-5.2); BILIRUBIN,TOTAL 0.5 MG/DL (0.3-1.2); CALCIUM LEVEL 9.3 MG/DL (8.3-10.6); CHOLESTEROL RISK RATIO 2.93 (<5); CREATININE FOR GFR 0.79 MG/DL (0.55-1.30); GLOMERULAR FILTRATION RATE 78.4 (>39); HDL CHOLESTEROL 50.8 MG/DL (>40); LDL CHOLESTEROL 77.4 MG/DL (<100); NON-HDL-C 98.2 MG/DL; POTASSIUM SERUM 4.9 MMOL/L (3.5-5.1); TOTAL PROTEIN 6.6 G/DL (5.7-8.2)
[2024-10-31 14:32] LABS: HEMOGLOBIN A1c 6.6 % (4.0-6.0)
[2024-10-31 14:45] LABS: CREATININE, URINE 52.1 MG/DL
[2024-10-31 14:46] LABS: MAU/CREAT RATIO 72.9 MCG/MG (0.0-30.0)
== END ==
LOC: M LABDRWAD 12:30
PROVIDERS: ATTEND Family Medicine
DX: E11.69 Type 2 diabetes mellitus with other specified complication (principal)

== ENCOUNTER → 2025-02-13 | Outpatient (CLI) | payer MEDICARE ==
[~2025-02-13] MED LIST changes: +ASCO500C3 PO; +BIMA01SOL OU; -BRIM1OPD; +BRIM5DRO25; -DORZ2SOL5; +DORZ2SOL5 OU; -METO50TA7; +METO50TA7 PO; -SIMV10TA21; +SIMV10TA21 PO; +XALA0.007 OU
== END ==
LOC: M WHC 08:17
PROVIDERS: ATTEND Specialist
DX: M85.9 Disorder of bone density and structure, unspecified (principal); Z79.811 Long term (current) use of aromatase inhibitors

== ENCOUNTER → 2025-03-14 | Outpatient (CLI) | payer MEDICARE | LOC: M WHC 09:59 | PROVIDERS: ATTEND Family Medicine | DX: Z12.31 Encounter for screening mammogram for malignant neoplasm of breast (principal); R92.313 Mammographic fatty tissue density, bilateral breasts ==

== ENCOUNTER → 2025-03-17 | Outpatient (REF) | payer MEDICARE ==
[2025-03-17 13:50] LABS: BASO # 0.1 10^3/uL (0.0-0.2); BASO % 0.7 % (0.0-1.0); EOS # 0.3 10^3/uL (0.0-0.5); EOS % 4.6 % (0.0-3.0); LYMPH # 1.7 10^3/uL (1.5-5.0); LYMPH % 25.0 % (24.0-44.0); MONO # 0.6 10^3/uL (0.0-0.8); MONO % 8.4 % (2.0-8.0); NEUTROPHILS # 4.1 10^3/uL (1.5-8.5); NEUTROPHILS % 60.9 % (36.0-66.0); PLATELET COUNT, AUTOMATED 243 10^3/uL (150-450)
[2025-03-17 13:52] LABS: ALT/SGPT 13.0 U/L (7.0-40); AST/SGOT 17.0 U/L (<34); CALCIUM LEVEL 9.7 MG/DL (8.3-10.6); CARBON DIOXIDE LEVEL 28.0 MMOL/L (20-31); CHLORIDE LEVEL 103.0 MMOL/L (98-107); CREATININE FOR GFR 0.79 MG/DL (0.55-1.30); GLOMERULAR FILTRATION RATE 78.4 (>39); POTASSIUM SERUM 4.7 MMOL/L (3.5-5.1); SODIUM LEVEL 142.0 MMOL/L (136-145)
== END ==
LOC: M LABDRWAD 12:56
PROVIDERS: ATTEND Internal Medicine Hematology & Oncology
DX: C50.919 Malignant neoplasm of unspecified site of unspecified female breast (principal)